=== PATIENT | male | born 1990 | race Two or more races ===

== ENCOUNTER → 2017-02-03 | Outpatient (CLI) | payer OTHER ==
[~2017-02-03] MED LIST: ALBUTEROL SULF 2.5 MG/0.5ML(0.5%) NEB SOLN ONE
== END | disposition home or self-care (01) ==
LOC: RT 10:36
PROVIDERS: ATTEND Internal Medicine Pulmonary Disease
DX: J45.991 Cough variant asthma (principal)
CPT/HCPCS: 94060; 94640